=== PATIENT | female | born 1945 | race Caucasian/White ===

== ENCOUNTER 2019-07-11 19:17 | Emergency (ER) | payer SELFPAY ==
[~2019-07-11] VITALS: Ht 160 cm; Wt 59.0 kg
[2019-07-11 19:22] VITALS: Ht 160 cm; Wt 59.0 kg
[2019-07-11] MEDS ORDERED: PANCREAZE DR 11 EAC1 (23:39)
[2019-07-11] MEDS ORDERED: METOCLOPRAMIDE H5 M1 (23:39)
[2019-07-11] MEDS ORDERED: PANTOPRAZOLE SO40 M1 (23:40)
[2019-07-11] MEDS ORDERED: METHIMAZOLE10 MG (23:41)
[2019-07-11] MEDS ORDERED: CARAFATE1 GM/10 ML (23:41)
[2019-07-11 23:42] LABS: BASOPHIL % 0.5 % (0-2); PLATELET COUNT 203 x10^3mcL (130-400)
[2019-07-11] MEDS ORDERED: METOPROLOL TAR100 MG (23:42)
[2019-07-11] MEDS ORDERED: MECLIZINE HYD12.5 MG GT (23:45)
[2019-07-11] MEDS ORDERED: HUMULIN 70/303 ML (23:45)
[2019-07-11 23:46] LABS: RED CELL DISTRIBUTION WIDTH 15.1 % (11.5-14.5)
[2019-07-11 23:46] LABS: CALCIUM 8.2 mg/dL (8.5-10.1); CARBON DIOXIDE 25.5 mmol/L (21-32); CHLORIDE SERUM 107 mmol/L (98-107); CREATININE SERUM 0.8 mg/dL (0.6-1.0); GLUCOSE SERUM 100 mg/dL (74-106); POTASSIUM SERUM 3.7 mmol/L (3.5-5.1); SODIUM SERUM 140 mmol/L (136-145)
[2019-07-11] MEDS ORDERED: MIRTAZAPINE15 M2 PO (23:46)
[2019-07-11 23:56] LABS: ALKALINE PHOSPHATASE 153 U/L (46-116); ALT/SGPT 42 U/L (14-59); AST/SGOT 18 U/L (15-37); BILIRUBIN TOTAL 0.3 mg/dL (0.20-1.00); TOTAL PROTEIN, SERUM 6.4 g/dL (6.4-8.2)
[2019-07-11 23:57] LABS: ALBUMIN 3.1 g/dL (3.4-5.0)
[2019-07-12 04:57] VITALS: BP 120/69
== END 2019-07-12 04:58 | disposition short-term general hospital (02) ==
LOC: ED 19:17
PROVIDERS: Specialist
DX: S32.402A Unspecified fracture of left acetabulum, initial encounter for closed fracture (principal); I10 Essential (primary) hypertension; X58.XXXA Exposure to other specified factors, initial encounter; Y93.89 Activity, other specified; Y92.89 Other specified places as the place of occurrence of the external cause; Y99.8 Other external cause status
CPT/HCPCS: J1885; J3010; J7030